=== PATIENT | male | born 1945 | race Hispanic/Latino ===

== ENCOUNTER 2022-08-19 08:13 | Emergency (ER) | payer MEDICARE ==
[~2022-08-19] VITALS: Ht 162.6 cm; Wt 58.1 kg
[2022-08-19 08:58] LABS: APPEARANCE,URINE CLEAR (CLEAR); BILIRUBIN,URINE NEGATIVE (NEGATIVE); COLOR,URINE LIGHT-YELLOW (YELLOW); GLUCOSE, URINE (UA) NEGATIVE (NEGATIVE); KETONES,URINE NEGATIVE (NEGATIVE); LEUKOCYTE ESTERASE ,URINE NEGATIVE Leu/uL (NEGATIVE); NITRATE,URINE NEGATIVE (NEGATIVE); OCCULT BLOOD,URINE NEGATIVE (NEGATIVE); PH,URINE 5.5 (5.0-8.0); PROTEIN,URINE NEGATIVE (NEGATIVE); UROBILINOGEN,URINE 0.2 mg/dL (0.2-1.0)
[2022-08-19 09:04] LABS: BASOPHILS % (AUTO) 0.4 % (0.0-5.0); EOSINOPHILS % (AUTO) 1.7 % (0.0-8.0); HEMATOCRIT 40.5 % (42-54); LYMPHOCYTES % (AUTO) 17.7 % (21.0-51.0); MEAN CORPUSCULAR HEMOGLOBIN 30.8 pg (27.0-33.0); MEAN CORPUSCULAR HGB CONC 33.8 g/dL (32.0-36.0); MONOCYTES % (AUTO) 5.8 % (3.0-13.0); PLATELET COUNT (AUTO) 157 K/uL (130-400); RED BLOOD CELL COUNT(AUTO) 4.45 MIL/uL (4.50-6.20); RED CELL DISTRIBUTION WIDTH 12.3 % (11.0-15.5)
[2022-08-19] MEDS ORDERED: BISACODYL 10 MG SUPP.RECT RC ONE ×2 (09:21→09:30)
[2022-08-19 09:22] LABS: ALBUMIN 4.5 g/dL (3.5-5.0); CREATININE 0.7 mg/dL (0.5-1.5); POTASSIUM 3.9 mmol/L (3.5-5.1); TOTAL PROTEIN, SERUM 7.5 g/dL (6.0-8.3)
[2022-08-19] MEDS ORDERED: POLY17PO4 PO (12:32)
[2022-08-19 12:34] VITALS: BP 123/51
== END 2022-08-19 12:50 | disposition home or self-care (01) ==
LOC: EDH 08:13
DX: N39.0 Urinary tract infection, site not specified (principal); K59.00 Constipation, unspecified; E11.9 Type 2 diabetes mellitus without complications; I10 Essential (primary) hypertension; Z88.5 Allergy status to narcotic agent
CPT/HCPCS: 36415; 74018; 80053; 81003; 83605; 83735; 85025

== ENCOUNTER 2022-08-24 13:39 | Emergency (ER) | payer MEDICARE ==
[~2022-08-24] VITALS: Ht 162.6 cm; Wt 59.0 kg
[~2022-08-24 13:39] MED LIST: POLY17PO4 PO
[2022-08-24 18:01] VITALS: BP 131/60
== END 2022-08-24 18:05 | disposition home or self-care (01) ==
LOC: EDH 13:39
DX: R68.89 Other general symptoms and signs (principal); Z53.21 Procedure and treatment not carried out due to patient leaving prior to being seen by health care provider
CPT/HCPCS: 99281